=== PATIENT | female | born 1950 | race Caucasian/White ===

== ENCOUNTER 2020-08-17 13:42 | Outpatient (CLI) | payer MEDICARE, OTHER ==
--- NOTE | 2020-08-17 14:56 | RAD ---
LEFT KNEE 4 VIEWS: HISTORY: Unspecified osteoarthritis, unspecified site. Recent fall, left knee pain. FINDINGS/IMPRESSION: Degenerative changes are present manifested by osteophyte formation and joint space narrowing. No ac olivia fracture or dislocation is identified. POS: OFF
--- NOTE | 2020-08-17 14:57 | RAD ---
RIGHT KNEE FOUR VIEWS: 08/17/20 HISTORY: Unspecified osteoarthritis, unspecified site. Multiple recent falls. Right knee pain. FINDINGS/IMPRESSION: Degenerative changes are present. No acute fracture or dislocation identified. POS: OFF
== END 2020-08-17 13:43 | disposition home or self-care (01) ==
LOC: BICRAD 13:42
PROVIDERS: ATTEND Family Medicine
DX: M17.0 Bilateral primary osteoarthritis of knee (principal); M25.762 Osteophyte, left knee; M25.862 Other specified joint disorders, left knee

== ENCOUNTER 2022-04-25 08:20 | Outpatient (CLI) | payer MEDICARE, OTHER | END 2022-04-25 08:21 | disposition home or self-care (01) | LOC: BICMAMMO 08:20 | PROVIDERS: ATTEND Family Medicine | DX: Z12.31 Encounter for screening mammogram for malignant neoplasm of breast (principal); Z91.89 Other specified personal risk factors, not elsewhere classified | CPT/HCPCS: 77063; 77067 ==

== ENCOUNTER 2023-05-15 10:23 | Outpatient (CLI) | payer MEDICARE, OTHER | END 2023-05-15 10:24 | disposition home or self-care (01) | LOC: BICMAMMO 10:23 | PROVIDERS: ATTEND Family Medicine | DX: Z12.31 Encounter for screening mammogram for malignant neoplasm of breast (principal); Z13.820 Encounter for screening for osteoporosis; M85.851 Other specified disorders of bone density and structure, right thigh; M85.852 Other specified disorders of bone density and structure, left thigh; Z78.0 Asymptomatic menopausal state; Z91.89 Other specified personal risk factors, not elsewhere classified | CPT/HCPCS: 77063; 77067; 77080 ==

== ENCOUNTER 2023-05-18 14:19 | Outpatient (CLI) | payer MEDICARE, OTHER | END 2023-05-18 14:20 | disposition home or self-care (01) | LOC: ULT 14:19 | PROVIDERS: ATTEND Family Medicine | DX: R14.0 Abdominal distension (gaseous) (principal); M25.662 Stiffness of left knee, not elsewhere classified; M17.0 Bilateral primary osteoarthritis of knee; R93.89 Abnormal findings on diagnostic imaging of other specified body structures | CPT/HCPCS: 76856 ==

== ENCOUNTER 2025-05-22 08:04 | Outpatient (CLI) | payer MEDICARE, OTHER | END 2025-05-22 08:05 | disposition home or self-care (01) | LOC: BICMAMMO 08:04 | PROVIDERS: ATTEND Family Medicine | DX: Z12.31 Encounter for screening mammogram for malignant neoplasm of breast (principal); Z91.89 Other specified personal risk factors, not elsewhere classified | CPT/HCPCS: 77063; 77067 ==